=== PATIENT | female | born 1980 | race Caucasian/White ===

== ENCOUNTER 2019-05-05 10:36 | Day surgery (SDC) | payer BC ==
[~2019-05-05 10:36] MED LIST: Betamethasone Acetate/Betamethasone Sod Phosphate 30 MG/5 ML MDV EPIDUR ONE; Iopamidol 200-M 10 ML vial ITHECAL ONE; Lidocaine 2% 5 ML SDV INJECT ONE; Ropivacaine 0.5% 5 MG/ML 30 ML SDV INJECT ONE
--- NOTE | 2019-05-05 23:18 | OR ---
SURGEON: Vivienne Reddy D.O. DATE OF PROCEDURE: 05/05/2019 SYSTEM CONFIGURATION SPECIALIST: OR staff present: 1. Randy Iglesias RN. 2. Brinda Perdue RN. 3. RT Parish. WOUND CLASS: I. PREOPERATIVE DIAGNOSES: 1. Lumbar L5-S1 herniated disk. 2. Left S1 radiculopathy. POSTOPERATIVE DIAGNOSES: 1. Lumbar L5-S1 herniated disk. 2. Left S1 radiculopathy. PROCEDURES PERFORMED: 1. Left S1 transforaminal epidural steroid injection. 2. Fluoroscopic guidance for needle placement. 3. Local with oral Valium for sedation. SCREENING QUESTIONS: The patient answered "no" to all of the following questions: 1. Are you allergic to iodine, Betadine or latex? 2. Do you have a bleeding disorder? 3. Do you have any joint replacements, heart valve replacements, or a pacemaker? 4. Are you allergic to anti-inflammatories or blood thinners? 5. Do you have any current local or systemic infections? DESCRIPTION OF PROCEDURE: The patient had the procedure thoroughly explained including risks, benefits and alternatives. Consent was signed in my clinic indicating understanding and willingness to proceed. The patient presented to [facility] where the patient was escorted to the dressing room to disrobe and change into a hospital gown. Preoperative vital signs were taken and stable. The patient reported that Valium was taken prior to the procedure. The patient was brought to the procedure room and placed in the prone position on the table. A pillow was placed under the abdomen in order to flatten the lumbar lordosis. The back was prepped with ChloraPrep and sterilely draped. All personnel in the operating room were dressed in appropriate attire including surgical scrubs, head and shoe covers. This was to ensure sterility while in the treatment room. During the time fluoroscopy was in use, all personnel in the operating room wore lead marr with thyroid collars. Sterile technique was used during the procedure. The fluoroscope was placed for the left S1 transforaminal epidural steroid injection. There was no sign of infection at the skin site for needle insertion. The skin was anesthetized with 2% lidocaine with a 27 gauge 1-1/2 inch needle. Then a 22 gauge 3-1/2 inch spinal needle, advanced to the left S1. Under direct fluoroscopic guidance needle position was verified in three views; AP, oblique and lateral, with 0.2 cubic centimeters increments of Isovue-200 dye. No intravascular flow pattern was observed under live fluoroscopy. Then 12 milligrams of Celestone and local was slowly injected after negative aspiration of heme, cerebrospinal fluid and no paresthesias were noted. The needle was cleared prior to removal from the skin. No adverse reactions were noted. The patient was brought to the recovery room awake and in good condition by my staff. The patient was monitored and discharge instructions were given after a brief stay in the recovery area. Both oral and written discharge and follow up instructions were given. The patient will follow up in the clinic in 3-4 weeks post procedure to evaluate the efficacy. The patient verbalized understanding including understanding of those signs and symptoms that would require emergency care and knows how to contact the office if there are any problems or questions in the meantime. PREOPERATIVE PAIN: 5/10. POSTOPERATIVE PAIN: 2/10. FOLLOWUP: Follow up in the Pain Clinic in 3 weeks. WILLIAMS / ALLAN /[id number] MTDGwen
== END 2019-05-05 14:00 | disposition home or self-care (01) ==
LOC: MW.SDS 10:36
PROVIDERS: ATTEND Anesthesiology
DX: M51.17 Intervertebral disc disorders with radiculopathy, lumbosacral region (principal); M51.16 Intervertebral disc disorders with radiculopathy, lumbar region; M47.26 Other spondylosis with radiculopathy, lumbar region; M79.18 Myalgia, other site
CPT/HCPCS: 64483; J0702; 62323

== ENCOUNTER 2019-06-30 12:28 | Day surgery (SDC) | payer BC ==
[2019-06-30] MEDS ORDERED: Iopamidol 200-M 10 ML vial ITHECAL ONE (13:30)
[2019-06-30] MEDS ORDERED: Lidocaine 2% 5 ML SDV INJECT ONE (13:30)
[2019-06-30] MEDS ORDERED: Betamethasone Acetate/Betamethasone Sod Phosphate 30 MG/5 ML MDV EPIDUR ONE (13:30)
[2019-06-30] MEDS ORDERED: Ropivacaine 0.5% 5 MG/ML 30 ML SDV INJECT ONE (13:30)
--- NOTE | 2019-06-30 20:42 | OR ---
SURGEON: Vivienne Reddy D.O. DATE OF PROCEDURE: 06/30/2019 PRIMARY SURGEON: Vivienne Reddy D.O. ASSISTANTS: OR staff present: 1. Randy Iglesias RN. 2. Leela Elizabeth RN. 3. Felicity Dye RT. WOUND CLASS: I. PREOPERATIVE DIAGNOSES: 1. Left lumbosacral radiculopathy. 2. L5-S1 herniated disk. 3. Chronic low back pain. POSTOPERATIVE DIAGNOSES: 1. Left lumbosacral radiculopathy. 2. L5-S1 herniated disk. 3. Chronic low back pain. PROCEDURES PERFORMED: 1. Left transforaminal epidural steroid injection at S1. 2. Fluoroscopic guidance for needle placement. 3. Local with oral Valium for sedation. SCREENING QUESTIONS: The patient answered "no" to all of the following questions: 1. Are you allergic to iodine, Betadine or latex? 2. Do you have a bleeding disorder? 3. Do you have any joint replacements, heart valve replacements, or a pacemaker? 4. Are you allergic to anti-inflammatories or blood thinners? 5. Do you have any current local or systemic infections? MEDICAL NECESSITY: This is a patient with a history of chronic low back pain and lower extremity radicular pain in the above dermatomal pattern that comes in for the above diagnostic and therapeutic procedure. Pertinent positives and negatives for this suspected disease process along with the diagnostic findings and testing are in the patient's history and physical exam. The most salient feature includes radicular pain in the above dermatomal pattern. The patient had failed attempts at conservative therapy including physical therapy, nonsteroidal anti- inflammatory drugs, and other medications. No contraindications to perform this procedure including medical, no bleeding disorders or infections, no psychological, no antisocial personality disorder or active addiction disorder. There are no work-related issues, and, in general, the patient does not have any history of multiple prior interventions, surgeries or nerve blocks which have failed to return the patient to function. The patient's other symptoms to be treated include numbness, paresthesia, dysesthesia or hypoesthesia referred into the left lower extremity or any weakness in the involved myotome. This procedure is being performed in accordance with national guidelines as written by the [employer] (ESTELLA). DESCRIPTION OF PROCEDURE: The patient had the procedure thoroughly explained including risks, benefits and alternatives. Consent was signed in my clinic indicating understanding and willingness to proceed. The patient presented to [facility] [place] where the patient was escorted to the dressing room to disrobe and change into a hospital gown. Preoperative vital signs were taken and stable. The patient reported that Valium was taken prior to the procedure. The patient was brought to the procedure room and placed in the prone position on the table. A pillow was placed under the abdomen in order to flatten the lumbar lordosis. The back was prepped with ChloraPrep and sterilely draped. All personnel in the operating room were dressed in appropriate attire including surgical scrubs, head and shoe covers. This was to ensure sterility while in the treatment room. During the time fluoroscopy was in use, all personnel in the operating room wore lead marr with thyroid collars. Sterile technique was used during the procedure. The fluoroscope was placed for the S1 transforaminal epidural steroid injection. There was no sign of infection at the skin site for needle insertion. The skin was anesthetized with 2% lidocaine with a 27 gauge 1-1/2 inch needle. Then a 22 gauge 3-1/2 inch spinal needle, advanced to the S1. Under direct fluoroscopic guidance needle position was verified in three views; AP, oblique and lateral, with 0.2 cubic centimeters increments of Isovue-200 dye. No intravascular flow pattern was observed under live fluoroscopy. Then 12 milligrams of Celestone was slowly injected after negative aspiration of heme, cerebrospinal fluid and no paresthesias were noted. The needle was cleared prior to removal from the skin. No adverse reactions were noted. The patient was brought to the recovery room awake and in good condition by my staff. The patient was monitored and discharge instructions were given after a brief stay in the recovery area. Both oral and written discharge and follow up instructions were given. The patient will follow up in the clinic in 3-4 weeks post procedure to evaluate the efficacy. The patient verbalized understanding including understanding of those signs and symptoms that would require emergency care and knows how to contact the office if there are any problems or questions in the meantime. PREOPERATIVE PAIN: 8 to 9/10. POSTOPERATIVE PAIN: 2/10. FOLLOWUP: Follow up in the Pain Clinic in 3 weeks. HOGORQUIDEA / MODL /[id number]
== END 2019-06-30 14:00 | disposition home or self-care (01) ==
LOC: MW.SDS 12:28
PROVIDERS: ATTEND Anesthesiology
DX: G89.29 Other chronic pain (principal); M51.17 Intervertebral disc disorders with radiculopathy, lumbosacral region; M51.16 Intervertebral disc disorders with radiculopathy, lumbar region; M47.816 Spondylosis without myelopathy or radiculopathy, lumbar region; M79.18 Myalgia, other site
CPT/HCPCS: 64483; J0702; J2001; J2795; Q9966; 62323

== ENCOUNTER 2019-10-07 17:20 | Emergency (ER) | payer BC ==
[2019-10-07] MEDS ORDERED: Acetaminophen 500 MG Tab PO ONE (18:28)
[2019-10-07] MEDS ORDERED: Dexamethasone 4 MG Tab PO ONE (18:28)
--- NOTE | 2019-10-07 18:33 | EDM.PDOC ---
ED HPI GENERAL MEDICAL PROBLEM - General Chief Complaint: Neck Problem Stated Complaint: NECK PAIN Time Seen by Provider: 10/07/19 17:31 - History of Present Illness INITIAL COMMENTS - FREE TEXT/NARRATIVE: History of present illness: Patient presents with 2 weeks of neck pain that started out as a crick in her neck or a spasm type pain but has progressively gotten worse for the last 2 weeks she has had some numbness and tingling in her left arm with some perceived weakness she denies any injuries there is been no fever she is taken some indomethacin and Flexeril and Tylenol prescribed by a outpatient clinician and this has not provided very much relief at all for her neck pain she is never had this type of issue before she denies any weakness in her lower extremities or upper extremities except her left hand does occasionally feel slightly weak but chiropractor and 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 Starts in the low cervical spine and radiates down to the mid thoracic spine and then down the left arm. Review of systems: As per history of present illness and below otherwise all systems reviewed and negative. Past medical history: As per history of present illness and as reviewed below otherwise noncontributory. Surgical history: As per history of present illness and as reviewed below otherwise noncontributory. Social history: No reported history of drug or alcohol abuse. Family history: As per history of present illness and as reviewed below otherwise noncontributory. Physical exam: HEENT: Atraumatic, normocephalic, pupils reactive, negative for conjunctival pallor or scleral icterus, mucous membranes moist, throat clear, neck supple, nontender, trachea midline. Lungs: Clear to auscultation, breath sounds equal bilaterally, chest nontender. Heart: S1S2, regular, negative for clicks, rubs, or JVD. Abdomen: Soft, nondistended, nontender. Negative for masses or hepatosplenomegaly. Negative for costovertebral tenderness. Pelvis: Stable nontender. Genitourinary: Deferred. Rectal: Deferred. Extremities: Atraumatic, negative for cords or calf pain. Neurovascular unremarkable. Neuro: Awake, alert, oriented. Cranial nerves II through XII unremarkable. Cerebellum unremarkable. Motor and sensory unremarkable throughout. Exam nonfocal. Weakness in the upper lower extremities on exam Neck: There is spasm and tenderness in the paraspinal musculature of the base of the cervical spine C6 and C7 C5 is also tender the spinous processes are nontender. There is increased tingling and pain down the left arm with axial load Diagnostics: [] Therapeutics: [] Impression: Cervical radiculopathy [] Plan: Start the patient on steroids and gabapentin refer back to primary care [] Definitive disposition and diagnosis as appropriate pending reevaluation and review of above. - Related Data Allergies Allergy/AdvReac Type Severity Reaction Status Date / Time No Known Allergies Allergy Verified 06/22/19 10:45 Home Meds: Home Meds Cyclobenzaprine [Flexeril] 10 mg PO BEDTIME 10/07/19 [History] Ethinyl Estradiol/Drospirenone [Xenia 3 mg-0.02 mg Tablet] 1 each PO DAILY 10/07/19 [History] Indomethacin 50 mg PO TID PRN 10/07/19 [History] Past Medical History HEENT History: Reports: None Cardiovascular History: Reports: None Respiratory History: Reports: None Gastrointestinal History: Reports: None Genitourinary History: Reports: None [employer] History: Reports: Musculoskeletal History: Reports: None Neurological History: Reports: None Psychiatric History: Reports: Anxiety, Depression Endocrine/Metabolic History: Reports: None Hematologic History: Reports: None Immunologic History: Reports: None Oncologic (Cancer) History: Reports: None Dermatologic History: Reports: None - Infectious Disease History Infectious Disease History: Reports: Chicken Pox - Past Surgical History Head Surgeries/Procedures: Reports: None Female Surgical History: Reports: None Social & Family History - Family History Family Medical History: Noncontributory - Tobacco Use Smoking Status *Q: Never Smoker Second Hand Smoke Exposure: No - Caffeine Use Caffeine Use: Reports: Tea - Recreational Drug Use Recreational Drug Use: No ED ROS GENERAL - Review of Systems Review Of Systems: See Below ED EXAM, GENERAL - Physical Exam Exam: See Below Course - Vital Signs Text/Narrative:: She is counseled on the nature of this pain and how it may be difficult to treat she will be started on Decadron in the ED she will have a 5-day course of prednisone at home she will be started on gabapentin she is to take Tylenol for pain follow-up with a primary care doctor she is to stop her indomethacin until after the steroids are completed and she may continue the Flexeril as needed for spasm. - Orders/Labs/Meds Orders: Active Orders 24 hr Category Date Time Status Acetaminophen [Tylenol Extra Strength] Med 10/07/19 18:28 Once 1,000 mg PO ONETIME ONE dexAMETHasone Med 10/07/19 18:28 Once 12 mg PO ONETIME ONE Medication Orders Acetaminophen (Tylenol Extra Strength) 1,000 mg PO ONETIME ONE Stop: 10/07/19 18:29 Dexamethasone (Dexamethasone) 12 mg PO ONETIME ONE Stop: 10/07/19 18:29 Meds: Medications Generic Name Dose Route Start Last Admin Trade Name Raven PRN Reason Stop Dose Admin Acetaminophen 1,000 mg 10/07/19 18:28 Tylenol Extra Strength PO 10/07/19 18:29 ONETIME ONE Dexamethasone 12 mg 10/07/19 18:28 Dexamethasone PO 10/07/19 18:29 ONETIME ONE Departure - Departure Time of Disposition: 18:32 Disposition: Home, Self-Care 01 Condition: Good Clinical Impression: Cervical radiculopathy - Discharge Information *PRESCRIPTION DRUG MONITORING PROGRAM REVIEWED*: Not Applicable *COPY OF PRESCRIPTION DRUG MONITORING REPORT IN PATIENT LATANYA: Not Applicable Instructions: Cervical Radiculopathy, [id number] Referrals: Jd Jones MD [Primary Care Provider] - Additional Instructions: The following information is given to patients seen in the emergency department who are being discharged to home. This information is to outline your options for follow-up care. We provide all patients seen in our emergency department with a follow-up referral. The need for follow-up, as well as the timing and circumstances, are variable depending upon the specifics of your emergency department visit. If you don't have a primary care physician on staff, we will provide you with a referral. We always advise you to contact your personal physician following an emergency department visit to inform them of the circumstance of the visit and for follow-up with them and/or the need for any referrals to a consulting specialist. The emergency department will also refer you to a specialist when appropriate. This referral assures that you have the opportunity for follow-up care with a specialist. All of these measure are taken in an effort to provide you with optimal care, which includes your follow-up. Under all circumstances we always encourage you to contact your private physician who remains a resource for coordinating your care. When calling for follow-up care, please make the office aware that this follow-up is from your recent emergency room visit. If for any reason you are refused follow-up, please contact the [facility] Emergency Department at and asked to speak to the emergency department charge nurse. - My Orders Last 24 Hours: My Active Orders 10/07/19 18:28 Acetaminophen [Tylenol Extra Strength] 1,000 mg PO ONETIME ONE dexAMETHasone 12 mg PO ONETIME ONE - Assessment/Plan Last 24 Hours: My Active Orders 10/07/19 18:28 Acetaminophen [Tylenol Extra Strength] 1,000 mg PO ONETIME ONE dexAMETHasone 12 mg PO ONETIME ONE
== END 2019-10-07 19:15 | disposition home or self-care (01) ==
LOC: MW.ED 17:20
DX: M54.12 Radiculopathy, cervical region (principal)
CPT/HCPCS: 99283; A9270; J8540